=== PATIENT | male | born 1975 | race Caucasian/White ===

== ENCOUNTER 2023-07-22 15:46 | Emergency (ER) | payer SELFPAY ==
[~2023-07-22] VITALS: Ht 182.9 cm; Wt 82.8 kg
[2023-07-22 15:59] VITALS: BP 122/87; PULSE 75; RESP 18; TEMP 100.3; O2SAT 98
[2023-07-22] MEDS: KETOROLAC 30 MG/ML VIAL IVP ONE (16:52)
[2023-07-22] MEDS: NACL 0.9% 1,000 ML IV ONE ×3 (16:56→18:54)
[2023-07-22 18:07] LABS: BASOPHILS % (AUTO) 0.9 % (0.0-2.0); EOSINOPHILS % (AUTO) 0.3 % (0.0-4.0); HEMATOCRIT 44.2 % (36-52); HEMOGLOBIN 14.9 g/dL (12.0-18.0); LYMPHOCYTES % (AUTO) 20.7 % (20.5-51.1); MEAN CORPUSCULAR HEMOGLOBIN 30 pg (27-31); MEAN CORPUSCULAR HGB CONC 34 g/dL (33-37); MEAN CORPUSCULAR VOLUME 89.7 fL (80-94); MONOCYTES # (AUTO) 0.8 K/uL (0.8-1.0); MONOCYTES % (AUTO) 16.4 % (1.7-9.3); NEUTROPHILS # (AUTO) 3.1 K/uL (1.8-7.7); NEUTROPHILS % (AUTO) 61.7 % (42.2-75.2); PLATELET COUNT (AUTO) 159 K/uL (140-450); RED BLOOD CELL COUNT(AUTO) 4.93 MIL/uL (4.20-6.10); RED CELL DISTRIBUTION WIDTH 12.3 % (11.6-13.7); WHITE BLOOD COUNT (AUTO) 5.1 K/uL (4.8-10.8)
[2023-07-22 18:19] LABS: ANION GAP 11.3 (8-16); CALCIUM 8.5 mg/dL (8.5-10.1); CARBON DIOXIDE 29.6 mmol/L (21-32); CREATININE 1.1 mg/dL (0.6-1.3); POTASSIUM 3.9 mmol/L (3.5-5.1)
[2023-07-22] MEDS: ACETAMINOPHEN EXTRA STRENGTH 500 MG TAB PO ONE (18:39)
[2023-07-22 19:19] LABS: LACTIC ACID 0.7 mmol/L (0.4-2.0)
[2023-07-22 19:29] LABS: FLU A ANTIGEN negative (NEGATIVE)
[2023-07-22 19:30] LABS: FLU B ANTIGEN POSITIVE (NEGATIVE)
[2023-07-22] MEDS ORDERED: ACET-10509 PO (20:20)
[2023-07-22] MEDS ORDERED: IBUP-1842 PO (20:20)
[2023-07-22 20:43] LABS: APPEARANCE,URINE CLEAR (CLEAR); BILIRUBIN,URINE NEGATIVE (NEGATIVE); BLOOD, URINE NEGATIVE (NEGATIVE); COLOR,URINE YELLOW (YELLOW); LEUKOCYTE ESTERASE ,URINE NEGATIVE (NEGATIVE); NITRITE, URINE NEGATIVE (NEGATIVE); PROTEIN,URINE NEGATIVE (NEGATIVE); UGLUCOSE NEGATIVE (NEGATIVE); UROBILINOGEN,URINE 0.2 EU/dL (0.2 - 1)
[2023-07-22 21:06] VITALS: BP 133/82; PULSE 80; RESP 13; TEMP 99.7; O2SAT 97
== END 2023-07-22 21:06 | disposition home or self-care (01) ==
LOC: MED 15:46
DX: J10.1 Influenza due to other identified influenza virus with other respiratory manifestations (principal); Z20.822 Contact with and (suspected) exposure to COVID-19; Z79.899 Other long term (current) drug therapy
CPT/HCPCS: 36415; 71045; 80048; 81003; 82550; 83605; 85025; 87040; 87426; 87804; 96360; 96361; 99285; J7030